=== PATIENT | female | born 1995 | race Caucasian/White ===

== ENCOUNTER → 2020-01-18 | Emergency (ER) | payer SELFPAY ==
[~2020-01-18] VITALS: Ht 162.6 cm; Wt 77.1 kg
[~2020-01-18] MED LIST: KETOROLAC TROMETH 15 mg/ml 1ML VL IV ONE; ONDANSETRON HCL 4 MG/2 ML VIAL IV ONE; SODIUM CHLORIDE 0.9% 1,000 ML IV ONE
[2020-01-18 14:31] VITALS: BP 111/72
== END | disposition home or self-care (01) ==
LOC: ER 11:29
DX: E86.0 Dehydration (principal); Z90.89 Acquired absence of other organs
CPT/HCPCS: 96361; 96374; 96375; 99284; J1885; J2405; J7030